=== PATIENT | female | born 1940 | race Caucasian/White ===

== ENCOUNTER → 2021-10-19 | Outpatient (CLI) | payer OTHER | END | disposition home or self-care (01) | LOC: RAH 12:56 | PROVIDERS: ATTEND Family Medicine | DX: I08.3 Combined rheumatic disorders of mitral, aortic and tricuspid valves (principal); I48.0 Paroxysmal atrial fibrillation; I11.9 Hypertensive heart disease without heart failure; E78.5 Hyperlipidemia, unspecified | CPT/HCPCS: 93306 ==

== ENCOUNTER → 2021-10-23 | Outpatient (CLI) | payer OTHER ==
[~2021-10-23] MED LIST: REGADENOSON 0.4 MG/5 ML PF SYG IVP SCH
== END | disposition home or self-care (01) ==
LOC: SHCH 10-20 08:47 → EDUNIT# 10-20 09:20 → SHCH 07:35
PROVIDERS: ATTEND Internal Medicine Cardiovascular Disease
DX: I44.7 Left bundle-branch block, unspecified (principal); I48.0 Paroxysmal atrial fibrillation; I10 Essential (primary) hypertension; G45.9 Transient cerebral ischemic attack, unspecified; Z79.01 Long term (current) use of anticoagulants
CPT/HCPCS: 78452; 93017; 96374; A9500 ×2; J2785

== ENCOUNTER → 2024-11-27 | Outpatient (CLI) | payer OTHER ==
--- NOTE | 2024-11-27 23:10 | HMCSR ---
APPROVED REPORT EXAM: Two-dimensional and M-mode echocardiogram with Doppler and color Doppler. INDICATION ICD: Chronic AF I48.0 2D Dimensions RVDd4.0 cmLVEF(%)19.5 (>50%)LVED Vol(simp.)65.0 mL IVSd1.2 (0.7-1.1cm)FS(%)9 %LVES Vol(simp.)46.0 mL LVDd4.4 (3.8-5.6cm)LA (2D)3.8 (1.6-4.0cm)LVEF(%, simp.)43 % PWd1.1 (0.7-1.1cm)LVOT diam2.0 (1.8-2.4cm)LA ESV INDEX (BP)38.71 mL/m2 IVSs0.9 cmIVC diam1.4 cm LVDs4.0 (2.5-4.0cm) PWs1.3 cm M-Mode Dimensions EPSS0.7 cm LA (MM)4.0 (1.6-4.0cm) Ao Root(MM)2.4 (2.0-3.7cm) Aortic Valve AoV Vmax1.5 m/Breonna Peak GR9.5 mmHgLVOT Vmax0.6 m/s AoV VTI0.3 mAo Mean GR5.8 mmHgLVOT VTI0.12 m PAYTON (VMAX)1.23 cm2AVA (VTI) 1.2 cm2 Mitral Valve MV E Grre912.4 cm/sDECEL Time86 ms MV A Vmax48.5 cm/sP 1/2 T61 ms E/A ratio2.4MVA (PHT)3.6 cm2 Pulmonary Valve PV Vmax1.1 m/sPV Mean GR2.1 mmHg PV Peak GR4.8 mmHg Tricuspid Valve TR Vmax2.8 m/sRAP (EST) 8 ieTvGWIQ88.6 mmHg TR Peak GR33.6 mmHg Left Ventricle The left ventricle is normal size. There is paradoxical septal wall motion noted, otherwise there is mild global hypokinesis of the left ventricle. Mild concentric left ventricular hypertrophy. Left valencia tricle systolic function is mildly depressed, estimated LVEF 45 to 50%. Indeterminate diastolic funct ion. Right Ventricle The right ventricle is normal size. The right ventricular systolic function is normal. Atria The left atrium is mildly dilated, 38 mL/m. The right atrium is dilated. Aortic Valve Aortic valve is trileaflet. The leaflets are mildly thickened and calcified. Mild aortic regurgitatio n. There is no aortic valvular stenosis. Mitral Valve The mitral valve is normal in structure. The leaflets are mildly thickened and calcified. Moderate mi tral regurgitation. There is no mitral valve stenosis. Tricuspid Valve The tricuspid valve is normal in structure. Mild tricuspid regurgitation. RVSP is 34 mmHg. Pulmonic Valve Pulmonic valve is not well visualized. Great Vessels The aortic root is normal in size. The IVC is normal in size and collapses >50% with inspiration. Pericardium There is no pericardial effusion. Other Information Quality : Adequate Conclusion The left atrium is mildly dilated, 38 mL/m. The right atrium is dilated. Mild concentric left ventricular hypertrophy. There is paradoxical septal wall motion noted, otherwise there is mild global hypokinesis of the left ventricle. Left ventricle systolic function is mildly depressed, estimated LVEF 45 to 50%. Indeterminate diastolic function. Mild aortic regurgitation. Moderate mitral regurgitation. Mild tricuspid regurgitation. PASP is 37 mmHg. There is no pericardial effusion. There was significant ectopy seen throughout the study.
== END | disposition home or self-care (01) ==
LOC: RAH 13:41
PROVIDERS: ATTEND Internal Medicine Cardiovascular Disease
DX: I08.3 Combined rheumatic disorders of mitral, aortic and tricuspid valves (principal); I11.9 Hypertensive heart disease without heart failure; I48.0 Paroxysmal atrial fibrillation
CPT/HCPCS: 93306

== ENCOUNTER → 2025-01-15 | Outpatient (CLI) | payer OTHER ==
[2025-01-15 11:17] LABS: BASOPHILS # (AUTO) 0.04 K/uL (0.00-0.20); BASOPHILS % (AUTO) 0.5 % (0.0-5.0); EOSINOPHILS # (AUTO) 0.11 K/uL (0.00-0.70); EOSINOPHILS % (AUTO) 1.5 % (0.0-8.0); HEMATOCRIT 37.1 % (36-48); IMMATURE GRANULOCYTE ABSOLUTE 0.02 K/uL (0-1); LYMPHOCYTES # (AUTO) 1.2 K/uL (1.0-4.8); LYMPHOCYTES % (AUTO) 16.4 % (21.0-51.0); MEAN CORPUSCULAR HEMOGLOBIN 29.3 pg (27.0-33.0); MEAN CORPUSCULAR HGB CONC 30.7 g/dL (32.0-36.0); MEAN CORPUSCULAR VOLUME 95.4 fL (79-99); MONOCYTES # (AUTO) 1.1 K/uL (0.1-1.0); MONOCYTES % (AUTO) 14.9 % (3.0-13.0); NEUTROPHILS # (AUTO) 4.9 K/uL (1.8-7.7); NEUTROPHILS % (AUTO) 66.4 % (40.0-77.0); PLATELET COUNT (AUTO) 434 K/uL (130-400); RED BLOOD CELL COUNT(AUTO) 3.89 MIL/uL (4.00-5.50); RED CELL DISTRIBUTION WIDTH 14.7 % (11.0-15.5); WHITE BLOOD COUNT (AUTO) 7.4 K/uL (4.8-10.8)
[2025-01-15 11:26] LABS: HEMOGLOBIN A1C 5.5 % (4.0-6.0)
[2025-01-15 11:30] LABS: CHOLESTEROL 137 mg/dL (<200); HDL CHOLESTEROL 44 mg/dL (35-85); LDL DIRECT 81 mg/dL (0-99); TRIGLYCERIDES 144 mg/dL (30-200)
== END | disposition home or self-care (01) ==
LOC: LAB 10:32
PROVIDERS: ATTEND Internal Medicine
DX: D64.9 Anemia, unspecified (principal); D75.839 Thrombocytosis, unspecified; D72.820 Lymphocytosis (symptomatic); N95.2 Postmenopausal atrophic vaginitis; Z71.2 Person consulting for explanation of examination or test findings; I11.0 Hypertensive heart disease with heart failure; I50.9 Heart failure, unspecified; I73.9 Peripheral vascular disease, unspecified; I48.91 Unspecified atrial fibrillation; Z79.899 Other long term (current) drug therapy
CPT/HCPCS: 36415; 80061; 83036; 85025